=== PATIENT | female | born 1965 | race Caucasian/White ===

== ENCOUNTER 2020-04-16 15:08 | Emergency (ER) | payer SELFPAY ==
--- NOTE | ~2020-04-16 | XR_ITS ---
XR knee RT 2V DATE: 04/16/2020 15:44 INDICATION: Posterior knee pain for 2 days TECHNIQUE: AP and crosstable lateral views of right knee knee COMPARISON: 01/31/2004 right knee FINDINGS: Threaded fixation devices noted in the distal femur and proximal tibia for prior presumed c ruciate ligament repair. No fracture or dislocation is evident. Small suprapatellar bursa joint effusion is suggested. No fracture, dislocation, periosteal reaction or bone destruction, radiopaque intra-articular loose b sun or chondrocalcinosis is evident. IMPRESSION: Postoperative change from presumed prior cruciate ligament repair. Small suprapatellar knee joint effusion Reviewed, dictated and finalized at location A.
--- NOTE | 2020-04-16 15:21 | ED.LOWEXIN ---
HPI - Extremity Injury (Lower) General Chief Complaint: Extremity Injury, Lower Stated Complaint: knee pain Source: patient Mode of arrival: ambulatory Limitations: no limitations History of Present Illness HPI Narrative: Patient presents with a right knee pain her with some mild swelling and redness warmth and tenderness has a history of a else ACL tear with pins in her right knee, there is no known injury although the patient has been outdoors doing yd work and has a few scrapes and abrasions to the anterior and posterior area of her right knee currently there is no fever or chills the knee has good range of motion although limited secondary to pain inflammation. Again no known injury there is no calf pain there is no calf swelling and the patient has a strong brisk pedal pulse on the right. Injury: Right: knee (Pain, swelling and reddness) Place: home Severity: moderate Relieving factors: NSAID Exacerbating factors: weight bearing and movement Related Data Home Medications Medication Instructions Recorded Confirmed aspirin 81 mg PO DAILY 04/16/20 04/16/20 citalopram 10 mg PO DAILY 04/16/20 04/16/20 hydrochlorothiazide 25 mg PO DAILY 04/16/20 04/16/20 metoprolol succinate 25 mg PO DAILY 04/16/20 04/16/20 Allergies Allergy/AdvReac Type Severity Reaction Status Date / Time Penicillins Allergy Unknown Swelling Verified 04/16/20 15:38 GENERAL ANESTHESIA Allergy Severe CARDIAC Uncoded 01/24/04 15:10 ARREST GENERALANESTHET Allergy Severe CARDIAC Uncoded 12/20/08 13:22 ARREST Review of Systems Review of Systems: All systems reviewed & are unremarkable except as noted in HPI and below PMFSH Past Medical History Medical History HTN (hypertension) Exam Const: General: no acute distress and alert Nutritional Appearance: well nourished Orientation/consciousness: patient oriented x3 HENMT: Head: normal to inspection Eyes: Conjunctivae: conjunctivae normal Pupils: Equal, round and reactive pupils present EOM: EOMs intact bilaterally Neck: Neck: normal visual inspection, no lymphadenopathy and no meningeal signs Chest: Chest palpation & inspection: normal inspection of the chest Resp: Effort & Inspection: normal respiratory effort Auscultation: clear to auscultation bilaterally Cardio: Rate: regular rate Rhythm: regular rhythm GI: GI Palp: Yes Soft to palpation Percussion: Yes normal to percussion : General: Yes no CVA tenderness Back/Spine/Pelvis: Back: no CVA tenderness Skin: Other: Anterior r Extrem: Other: anterior right knee with some swelling redness warmth and tenderness to touch. Psych: Mental Status: mental status grossly normal Course Course Emergency Course: Patient after receiving IM Toradol and IM ceftriaxone knee pain is moderately improved. Critical Care Time Critical Care Time Critical Care Time: No Discharge Plan Discharge Clinical Impression: Cellulitis Qualifiers: Site of cellulitis: extremity Site of cellulitis of extremity: lower extremity Laterality: right Qualified Code(s): L03.115 - Cellulitis of right lower limb Patient Disposition: Home, Self-Care Condition: Stable Instructions: Antibiotic Form, Cellulitis (ED) Additional Instructions: take medicine as prescribed, can take ibuprofen 600 mg 3 times a day as needed [id number]. Follow-up with primary care physician if symptoms persist or worsen. Prescriptions: New tramadol [Ultram] 50 mg tablet 50 mg PO Q6H PRN (Reason: pain) Qty: 20 RF: 0 clindamycin HCl 300 mg capsule 300 mg PO Q6H Qty: 40 RF: 0 No Action citalopram 10 mg tablet 10 mg PO DAILY RF: 0 aspirin 81 mg Tablet,Chewable 81 mg PO DAILY RF: 0 hydrochlorothiazide 25 mg tablet 25 mg PO DAILY RF: 0 metoprolol succinate 25 mg tablet extended release 24 hr 25 mg PO DAILY RF: 0 Follow-up/Referrals: Jimbo,GEORGE Boucher [Prima
[2020-04-16 15:30] VITALS: BP 143/75; PULSE 113; RESP 18; TEMP 36.9; O2SAT 96
[2020-04-16] MEDS: KETOROLAC (*BKC) 60 MG/2 ML VIAL IM (15:42)
[2020-04-16 16:13] LABS: Hematocrit 45.1 % (35.0-49.0); Hemoglobin 15.1 g/dL (12.0-15.0); Mean Corpuscular HGB Conc 33.5 g/dL (32.0-36.0); Mean Corpuscular Hemoglobin 30.4 pg (27.0-31.0); Mean Corpuscular Volume 90.7 fL (78.0-102.0); Mean Platelet Volume 9.9 fl (9.2-11.8); Platelet Count Result 281 K/mm3 (150-420); Red Blood Count 4.97 M/mm3 (4.20-5.40); Red Cell Distribution Width 12.8 % (11.6-14.4)
[2020-04-16 16:18] LABS: Alanine Aminotransferase 34 U/L (14-59); Albumin Level 3.9 g/dL (3.4-5.0); Alkaline Phosphatase 64 U/L (46-116); Anion Gap 8 mmol/L (8-16); Aspartate Amino Transferase 21 U/L (15-37); Bilirubin,Total 0.3 mg/dL (0.00-1.00); Blood Urea Nitrogen 27 mg/dL (7-18); Calcium 10.1 mg/dL (8.5-10.1); Carbon Dioxide 28 mmol/L (21-32); Chloride 106 mmol/L (98-108); Estimated CRCL calculation 48 ml/min; Estimated Glomerular Filt Rate 52; Glucose 94 mg/dL (70-99); Osmolality Calculated 299 mOsm/kg (285-295); Potassium 3.5 mmol/L (3.5-5.1); Sodium 142 mmol/L (136-145); Total Protein 7.7 g/dL (6.4-8.2)
[2020-04-16] MEDS: cefTRIAXone 1 GM VIAL IM (16:25)
[2020-04-16 16:47] VITALS: RESP 18
== END 2020-04-16 16:48 | disposition home or self-care (01) ==
PROVIDERS: Emergency Provider Emergency Medicine; PCP Nurse Practitioner
DX: L03.115 Cellulitis of right lower limb (principal)
CPT/HCPCS: 36415; 73560; 80053; 85027; 87040; 87077; 87186; 96372; 99283; 99284; J0696; J1885

== ENCOUNTER 2021-07-08 12:02 | Emergency (ER) | payer OTHER, SELFPAY ==
--- NOTE | ~2021-07-08 | CT_ITS ---
EXAMINATION: CT brain wo con INDICATION: Head injury COMPARISON: 01/26/2018 TECHNIQUE: Standard unenhanced head CT. The dose-length product (DLP) was 529.67 mGy-cm. The mA was a djusted according to patient size. Iterative reconstruction technique was employed. FINDINGS: There is no intracranial hemorrhage, acute infarction, or abnormal mass lesion. The ventric les are normal. There is no abnormal mass effect or midline shift. The mayfield-white matter differentiat ion is normal. The basal cisterns are patent. The orbits are normal. The paranasal sinuses, mastoids and calvarium are normal. IMPRESSION: 1. No acute intracranial abnormality. Reviewed, dictated and finalized at location B.
[2021-07-08 12:22] VITALS: BP 174/97; PULSE 86; RESP 16; TEMP 36; O2SAT 98
[2021-07-08] MEDS: ONDANSETRON HCL ODT 4 MG TABLET PO (12:56)
[2021-07-08] MEDS: KETOROLAC (*BKC) 60 MG/2 ML VIAL IM (12:56)
--- NOTE | 2021-07-08 13:01 | ED.HEATRA ---
HPI - Head Injury General Chief complaint: Head Injury Stated complaint: cracked head 07/07,blurred vision,headache,nausea Source: patient Mode of arrival: ambulatory History of Present Illness HPI Narrative: this 5 year female that hit her head on a cabinet causing a mild non gaping laceration on frontal scalp that occurred on Thursday which was 2 days ago with no loss of consciousness, patient did take some [id number] pain medication with moderate relief. Currently having some nausea with the headache patient did not have any loss of consciousness has no neurological deficits. Complaint: head injury Onset (ago): day(s) Mechanism of Injury: other ( hit her head on a counter) Place: home Loss of Consciousness: no Location of injury: frontal Severity: mild Severity scale (1-10): 5 Quality: dull Related Data Home Medications Medication Instructions Recorded Confirmed aspirin 81 mg PO DAILY 04/16/20 04/16/20 citalopram 10 mg PO DAILY 04/16/20 04/16/20 hydrochlorothiazide 25 mg PO DAILY 04/16/20 04/16/20 metoprolol succinate 25 mg PO DAILY 04/16/20 04/16/20 Allergies Allergy/AdvReac Type Severity Reaction Status Date / Time Penicillins Allergy Unknown Swelling Verified 07/08/21 12:27 GENERAL ANESTHESIA Allergy Severe CARDIAC Uncoded 01/24/04 15:10 ARREST GENERALANESTHET Allergy Severe CARDIAC Uncoded 12/20/08 13:22 ARREST Review of Systems Review of Systems: All systems reviewed & are unremarkable except as noted in HPI and below PMFSH Past Medical History Medical History (Updated 07/08/21 @ 13:06 by Tristan Mars MD) HTN (hypertension) Exam Const: General: no acute distress and alert Orientation/consciousness: patient oriented x3 HENMT: Head: normal to inspection Eyes: Conjunctivae: conjunctivae normal Pupils: Equal, round and reactive pupils present EOM: EOMs intact bilaterally Neck: Neck: normal visual inspection, no lymphadenopathy and no meningeal signs Chest: Chest palpation & inspection: normal inspection of the chest Resp: Effort & Inspection: normal respiratory effort Auscultation: clear to auscultation bilaterally Cardio: Rate: regular rate Rhythm: regular rhythm GI: GI Palp: Yes Soft to palpation : General: Yes no CVA tenderness Urinary Catheter: Urinary Catheter: patent and draining Back/Spine/Pelvis: Back: no CVA tenderness Skin: General skin exam: normal color Rashes: no rashes Neuro: General: patient oriented x3, moves all extremities, no meningeal signs and no focal motor deficits Cranial nerves: Yes CN's II-XII intact bilaterally and Yes Nystagmus not present Psych: Mental Status: mental status grossly normal Affect: normal affect Course Course Emergency Course: Patient received IM Toradol CT scan was reviewed with patient and will send pain medication to her pharmacy and advised follow-up primary care physician patient received ODT Zofran which helped her nausea and pain was has improved with IM Toradol. Vital Signs Vital signs: Vital Signs Temperature 36.0 C L 07/08/21 12:22 Pulse Rate 86 07/08/21 12:22 Respiratory Rate 16 07/08/21 12:22 Blood Pressure 174/97 H 07/08/21 12:22 Pulse Oximetry 98 07/08/21 12:22 Temperature 36.0 C L 07/08/21 12:22 Pulse Rate 86 07/08/21 12:22 Respiratory Rate 16 07/08/21 12:22 Blood Pressure 174/97 H 07/08/21 12:22 Pulse Oximetry 98 07/08/21 12:22 Critical Care Time Critical Care Time Critical Care Time: No Discharge Plan Discharge Clinical Impression: Head injury Qualifiers: Encounter type: initial encounter Qualified Code(s): S09.90XA - Unspecified injury of head, initial encounter Patient Disposition: Home, Self-Care Condition: Stable Instructions: Antibiotic Form, Head Injury (ED) Additional Instructions: take medicine as prescribed and follow-up with primary care physician within 1 week if symptoms persist or worsen. Prescriptions: New
== END 2021-07-08 13:16 | disposition home or self-care (01) ==
PROVIDERS: Emergency Provider Emergency Medicine; PCP Nurse Practitioner
DX: S09.90XA Unspecified injury of head, initial encounter (principal); W22.8XXA Striking against or struck by other objects, initial encounter
CPT/HCPCS: 70450; 96372; 99283; 99284; A9270; J1885

== ENCOUNTER 2022-08-11 11:22 | Outpatient (CLI) | payer BC, SELFPAY ==
[2022-08-14 10:50] LABS: Alpha-1-Antitrypsin, QN 144 mg/dL (83-199)
== END 2022-08-11 11:23 | disposition home or self-care (01) ==
LOC: CHSLAB 11:24
PROVIDERS: PCP Nurse Practitioner; Visit Provider Internal Medicine Pulmonary Disease
DX: J43.2 Centrilobular emphysema (principal)
CPT/HCPCS: 36415; 82103

== ENCOUNTER 2023-02-20 07:45 | Outpatient (CLI) | payer OTHER, SELFPAY ==
--- NOTE | 2023-02-20 07:57 | ECG_ITS ---
Measurements Intervals [place] Rate: 78 P: 47 [place]: 180 QRS: 24 QRSD: 106 T: -11 QT: 382 QTc: 436 Interpretive Statements SINUS RHYTHM NONSPECIFIC T-WAVE ABNORMALITY BORDERLINE ECG NO PREVIOUS ECG AVAILABLE FOR COMPARISON Electronically Signed On 02-20-2023 13:29:20 CDT by Tristan Zeng M.D.
[2023-02-20 08:48] LABS: Anion Gap 5 mmol/L (8-16); Blood Urea Nitrogen 20 mg/dL (7-17); Calcium 8.9 mg/dL (8.4-10.2); Carbon Dioxide 31 mmol/L (22-30); Chloride 103 mmol/L (98-107); Estimated Glomerular Filt Rate > 60; Glucose 120 mg/dL (65-110); Potassium 3.3 mmol/L (3.4-5.0); Sodium 139 mmol/L (137-145)
== END 2023-02-20 07:46 | disposition home or self-care (01) ==
PROVIDERS: Anesthesiology; PCP Nurse Practitioner; Visit Provider Otolaryngology
DX: I10 Essential (primary) hypertension (principal); Z01.818 Encounter for other preprocedural examination; R94.31 Abnormal electrocardiogram [ECG] [EKG]
CPT/HCPCS: 36415; 80048; 93005

== ENCOUNTER 2023-02-24 00:30 | Day surgery (SDC) | payer OTHER, SELFPAY ==
--- NOTE | 2023-02-17 14:36 | SUR.PREOP ---
Report to the Outpatient Waiting Room, entrance under the green pavilion located off [facility], at time 0915 on date 02/24/23. Planned Procedure Time: 1115. Time changes happen often and if your time is changed the preop area will call you the afternoon before. - You and your visitor will be asked to self-screen and do not enter if you have any COVID symptoms. - A mask is optional within the hospital at this time. Patients may have clear liquids (water, carbonated beverages, clear teas, apple juice) until 3 hours prior to surgery with a maximum of 20 ounces. - No food from midnight until time of surgery - Infants may have breast milk until 4 hours before surgery, infant formula 6 hours prior to surgery. - Children will be allowed to drink immediately following surgery. If applicable, please bring a bottle or sippy cup to assist with drinking. Juice, water, soda, and popsicles are readily available. For infants on formula, please bring formula the day of surgery. Pacifiers are allowed. Take the following medications with a SIP of water the morning of surgery: CITALOPRAM, METOPROLOL DO NOT STOP ANY OF YOUR OTHER PRESCRIPTION MEDICATIONS PRIOR TO SURGERY ?EXCEPT THE FOLLOWING Medications to discontinue per physician ASPIRIN- STOPPED 02/16/[address] SANCHEZ, VITAMINS & SUPPLEMENTS STOP 02/21/23 Please no make-up, nail burkinan, hairspray, perfume, deodorant, or body powder the day of surgery. No jewelry (including any body piercings) or valuables the day of surgery, leave them at home. Please take a shower or bath the night before, or the morning of, surgery with an antibacterial soap. Wear comfortable, loose fitting clothing. Children are encouraged to wear pajamas. - Jewelry must be removed prior to entering the operating room. Rings and piercings that are not removed may be cut off. - The hospital will not accept responsibility for valuables. - Please leave all valuables, including medications, at home the day of surgery. If you are going home after surgery, a licensed otr truck driver must drive you home. - NO public transportation without another adult if you receive anesthesia. - We recommend that an adult stay with you for 24 hours following discharge. - We also recommend that you do not drive, make important decision, drink alcoholic beverages, or take any drugs that were not prescribed by your health care provider for at least 24 hours after your discharge time. For Pediatric surgeries, we recommend two adults accompany the child home. Follow any additional instructions given to you from your surgeon. If you or anyone in your household have experienced Covid symptoms in the past week, please notify your surgeon or the nurse liaison at the phone number below for possible testing. Telephone instructions given to ANGELICA ROLLE and asked if any additional questions and then verbalized understanding. Patient advised to call surgeon office or pre surgery nurse liaison [phone] if any additional questions.
[2023-02-17 14:46] VITALS: BMI 29.5
--- NOTE | 2023-02-22 10:57 | PM.IMHP ---
H&P: HPI History of Present Illness Date/Time: 02/22/23 10:57 Chief Complaint: septal deviation turbinate hypertrophy nasal obstruction nasal congestion chronic sinusitis Narrative: planned procedure Review of Systems Review of Systems: All systems reviewed & are unremarkable except as noted in HPI and below PMFSH Past Medical History Medical History (Updated 12/25/22 @ 14:04 by Praveen Mast MD) HTN (hypertension) Surgical History Surgical History History of cholecystectomy Knee joint replacement status Family History Family History Father Heart disease Mother Asthma Cancer Hypertension Heart disease Grandparent Cancer Hypertension Heart disease Social History Social History (Updated 12/25/22 @ 13:31 by Mayuri Wang CMA) Smoking packs per day: 0.75 Smoking cigarettes per day: 15.0 Years smoked: 40 Smoking pack-years: 30.00 Smoking status: Former smoker Tobacco type: cigarettes Smoking end date: 01/05/23 Lack of Transportation: No Lack of Food: Never True Current Housing: I Have Housing Concerned About Future Housing: No Difficulty Paying Gas/Electric Bills: YES Difficulty Paying for Meds: No Currently Unemployed: No Education: High School Diploma/GED Living arrangements: with family Spiritual care concerns: No Meds Home Medications and Allergies Home Medications Medication Instructions Recorded Confirmed Type aspirin 81 mg chewable tablet 81 mg PO DAILY 04/16/20 02/17/23 History citalopram 10 mg tablet 10 mg PO DAILY 04/16/20 02/17/23 History hydrochlorothiazide 25 mg tablet 25 mg PO DAILY 04/16/20 02/17/23 History metoprolol succinate 25 mg 50 mg PO DAILY 04/16/20 02/17/23 History tablet,extended release 24 hr ascorbate calcium (vitamin C) 500 500 mg PO DAILY 12/17/22 02/17/23 History mg tablet cholecalciferol (vitamin D3) 10 10 mcg PO DAILY 12/17/22 02/17/23 History mcg (400 unit) capsule igkqrrws-xzv-powqm acid 0.4 1 tablet PO DAILY 12/17/22 02/17/23 History mg-lycopene 300 mcg-lutein 250 mcg tablet (Centrum Silver) potassium chloride 10 mEq 10 meq PO DAILY 12/17/22 02/17/23 History capsule,extended release albuterol sulfate 90 mcg/actuation 1 puff inhalation Q4H PRN 12/25/22 02/17/23 History aerosol inhaler (ProAir HFA) SHORTNESS OF BREATH fluticasone propionate 50 2 spray intranasal BID #16 mL 12/25/22 02/17/23 Rx mcg/actuation nasal spray,suspension (Flonase Allergy Relief) doxycycline hyclate 100 mg capsule 100 mg PO DAILY #7 caps 02/20/23 Rx Allergies Allergy/AdvReac Type Severity Reaction Status Date / Time bee venom protein (honey bee) Allergy Severe Swelling Verified 02/17/23 14:18 of Lip/Tongue/Throat iodine Allergy Severe Vomiting Verified 02/17/23 14:17 nut - unspecified Allergy Severe Itching Verified 02/17/23 14:19 Penicillins Allergy Severe Swelling Verified 02/17/23 14:18 of Lip/Tongue/Throat codeine Allergy Severe Headache Uncoded 02/17/23 14:18 Exam Narrative: Septal deviation turbinate hypertrophy Assessment and Plan Assessment and plan (1) Chronic sinusitis: Code(s): J32.9 - Chronic sinusitis, unspecified Status: Acute Assessment and Plan: ?for image guided endoscopic right-sided maxillary antrostomy with tissue removal left ashley bullosa resection endoscopic assisted septoplasty bilateral inferior turbinate submucosal reduction with outfracture. Risks were discussed including septal perforation regrowth of turbinates failure to resolve symptoms need for further procedures total blindness change in vision CSF leak brain brain damage. Patient voiced understanding of these risks and agreed. Also discussed damage to any structure above the clavicle by myself need for routine follow-up need for prolong
--- NOTE | 2023-02-23 13:07 | WPDANESEPPF ---
Anes - Initial Pre Proc Eval Procedure: Operation Date: 02/24/23 12:00 Proposed Procedures p Image Guided Right Maxillary Antrostomy with Tissue Removal, Left Resection Jennifer Bullosa - Praveen Mast MD s Septoplasty - Praveen Mast MD Date/Time: 02/23/23 13:07 Surgeon: Praveen Mast MD Pre Op Diagnosis: chronic sinusitis Patient Data Age: 57 Gender: F Height: 1.68 m Weight: 83.1 kg Allergies Allergy/AdvReac Type Severity Reaction Status Date / Time bee venom protein (honey bee) Allergy Severe Swelling Verified 02/24/23 10:54 of Lip/Tongue/Throat iodine Allergy Severe Vomiting Verified 02/24/23 10:54 nut - unspecified Allergy Severe Itching Verified 02/24/23 10:54 Penicillins Allergy Severe Swelling Verified 02/24/23 10:54 of Lip/Tongue/Throat codeine Allergy Severe Headache Uncoded 02/24/23 10:54 Home Medications Medication Instructions Recorded Confirmed Type aspirin 81 mg chewable tablet 81 mg PO DAILY 04/16/20 02/17/23 History citalopram 10 mg tablet 10 mg PO DAILY 04/16/20 02/24/23 History hydrochlorothiazide 25 mg tablet 25 mg PO DAILY 04/16/20 02/17/23 History metoprolol succinate 25 mg 50 mg PO DAILY 04/16/20 02/24/23 History tablet,extended release 24 hr ascorbate calcium (vitamin C) 500 500 mg PO DAILY 12/17/22 02/17/23 History mg tablet cholecalciferol (vitamin D3) 10 10 mcg PO DAILY 12/17/22 02/17/23 History mcg (400 unit) capsule hwdbqbrt-lfc-mkjkf acid 0.4 1 tablet PO DAILY 12/17/22 02/17/23 History mg-lycopene 300 mcg-lutein 250 mcg tablet (Centrum Silver) potassium chloride 10 mEq 10 meq PO DAILY 12/17/22 02/17/23 History capsule,extended release albuterol sulfate 90 mcg/actuation 1 puff inhalation Q4H PRN 12/25/22 02/17/23 History aerosol inhaler (ProAir HFA) SHORTNESS OF BREATH fluticasone propionate 50 2 spray intranasal BID #16 mL 12/25/22 02/17/23 Rx mcg/actuation nasal spray,suspension (Flonase Allergy Relief) doxycycline hyclate 100 mg capsule 100 mg PO DAILY #7 caps 02/20/23 Rx Patient hx anesthesia problems: none Family hx anesthesia problems: none Results Review: All pre-operative results and documents have been reviewed as part of the pre-operative evaluation. [facility] Past Medical History Medical History (Updated 02/23/23 @ 13:08 by Tone Fernandes DO) Asthma COPD (chronic obstructive pulmonary disease) HTN (hypertension) Hyperlipidemia ERIC (obstructive sleep apnea) CPAP Surgical History Surgical History (Updated 02/23/23 @ 13:08 by Tone Fernandes DO) History of x2 History of cholecystectomy Knee joint replacement status Family History Family History Father Heart disease Mother Asthma Cancer Hypertension Heart disease Grandparent Cancer Hypertension Heart disease Social History Social History (Updated 12/25/22 @ 13:31 by Mayuri Wang CMA) Smoking packs per day: 0.75 Smoking cigarettes per day: 15.0 Years smoked: 40 Smoking pack-years: 30.00 Smoking status: Former smoker Tobacco type: cigarettes Smoking end date: 01/05/23 Lack of Transportation: No Lack of Food: Never True Current Housing: I Have Housing Concerned About Future Housing: No Difficulty Paying Gas/Electric Bills: YES Difficulty Paying for Meds: No Currently Unemployed: No Education: High School Diploma/GED Living arrangements: with family Spiritual care concerns: No Anes - Eval Final PreProcedure Day of Procedure 02/23/23 13:07 Patient weight: overweight Heart: regular rate and rhythm Lungs: clear to auscultation Airway: Mallampati scale class II Neurological: alert and oriented Last oral intake: >/= 8 hours ASA classification: III Emergent: no Anesthetic plan: proceed Anesthesia type and monitoring: general ETT and standard monitoring Results Review: All pre-operative results
[2023-02-24] VITALS (16 sets, daily range): BP systolic 107–166; BP diastolic 57–89; PULSE 71–90; RESP 10–16; TEMP 36.1–36.6; O2SAT 92–98
--- NOTE | 2023-02-24 07:21 | WPDHPUPDATE1 ---
History and Physical Update Update Date/Time: 02/24/23 07:21 History and Physical has been reviewed, including an updated exam of the patient. There are NO changes in the patient's condition. Risks, benefits, and alternatives have been discussed and questions answered. Patient agrees to proceed with procedure.
[2023-02-24] MEDS: ACETAMINOPHEN 500 MG TABLET 1000 MG PO (10:45)
[2023-02-24] MEDS: LACTATED RINGERS 1,000 ML 30 ML IV CONT ×2 (10:54→15:46)
[2023-02-24] MEDS: ceFAZolin 2 GM/D5W 50 ML 2 GM/50 ML BAG IVPB (13:39)
[2023-02-24] MEDS: LIDO 1%/EPINEPHRINE 1:100,000 50 ML VIAL 12 ML INFILTRATE (14:19)
[2023-02-24] MEDS: OXYMETAZOLINE HCL 0.05% NAS 15 ML BTL (*BKC) 1 SPRAY NASAL (14:20)
[2023-02-24] MEDS: MUPIROCIN 2% OINT 22 GM TUBE 1 APPLIC EACH NARE (15:08)
--- NOTE | 2023-02-24 16:04 | W.PM.PROC2 ---
Procedure Note - Detailed Date of Procedure 02/24/23 Pre-op Diagnosis chronic sinusitis Nasal obstruction nasal congestion ashley bullosa Post-op Diagnosis Same Procedure Performed image guided right-sided maxillary antrostomy without tissue removal endoscopic assisted septoplasty in for turbinate reduction with outfracture left-sided resection of ashley bullosa. Surgeon Praveen Mast MD Anesthesia General Indications See above Findings large ashley severely deviated right caudal septum large turbinates right-sided edematous tissue within the max Description of Procedure patient identified consent verified in preop. Patient brought operating room. Time-out performed. General anesthesia induced endotracheal tube secured airway. Patient prepped draped position procedure confirmed 2nd time-out performed. Afrin-soaked pledgets placed in the nasal passages for 5 minutes then removed. Image guidance initiated confirmed. Right maxillary antrostomy performed with image guidance middle turbinate medialized backbiter straight through cut micro debrider utilized to widely open the maxillary sinus edematous tissue present. Gelfoam placed middle meatus left-sided ashley bullosa resected with sickle knife micro debrider Gelfoam placed in that area as well. Turbinates reduced in a submucosal plane after the injection of 1 cc of lidocaine into each head. With microdebrider with turbinate blade then outfractured [place]. Holger incision made left-sided very anterior able to see the entire caudal septum when scraped forward. The nasal septum was obviously injected with 10 cc of lidocaine with 1 100,000 parts epinephrine. 1%. Deviated septum removed there were perforations very closely a not abutting. Straight cartilage was placed in between the near perforations again they were not abutting. Nasal septal flap for elevated with 7 German suction again the cartilage was placed near any perforations deviated septum removed combination 15 blade osteotome José Miguel Lavelle forceps Evaristo forceps. After the procedure the Ortiz splints were placed bilaterally sutured anteriorly after left was trimmed sutured anteriorly using a through mattress nylon suture. Blood loss 15 cc. I performed all dictated portions procedure. Care the patient given back to Anesthesiology. No complications. Patient taken to PACU. Estimated Blood Loss 15 Drains No Packing Yes ( Gelfoam) Pathology None sent Complications No immediate complications Condition Stable Disposition PACU [facility] Billing Surgery - Charge Forward: Surgery Billing
[2023-02-24] MEDS: ONDANSETRON HCL ODT 4 MG TABLET PO (18:49)
[2023-02-24] MEDS: oxyCODONE HCL (*CRX) 5 MG TAB IR PO (19:20)
--- NOTE | 2023-02-24 19:21 | SUR.PHASEII ---
1920: Dressed with IV out x 1 hour. Had nausea without emesis. Nausea has subsided. pain to nares at 4/10. Oxycodone administered. VSS.
== END 2023-02-24 19:22 | disposition home or self-care (01) ==
PROVIDERS: PCP Nurse Practitioner; Visit Provider Otolaryngology
PROC: (CPT 31256; principal; 2023-02-24 12:00)
PROC: (CPT 30520; 2023-02-24 12:00)
DX: J32.9 Chronic sinusitis, unspecified (principal); J34.2 Deviated nasal septum; J34.3 Hypertrophy of nasal turbinates; R09.81 Nasal congestion; J34.89 Other specified disorders of nose and nasal sinuses; J44.9 Chronic obstructive pulmonary disease, unspecified; I10 Essential (primary) hypertension; E78.5 Hyperlipidemia, unspecified; G47.33 Obstructive sleep apnea (adult) (pediatric); Z87.891 Personal history of nicotine dependence; Z79.82 Long term (current) use of aspirin; Z79.51 Long term (current) use of inhaled steroids
CPT/HCPCS: 31256; 31240; 61782; 30520; 30140; A9270; J0330; J0690; J1100; J1170; J2250; J2405; J2704; J3010; J7120

== ENCOUNTER 2024-03-24 08:18 | Outpatient (CLI) | payer OTHER, SELFPAY ==
[2024-03-24 09:34] LABS: Thyroid Stimulating Hormone 3.58 uIU/mL (0.36-3.74)
== END 2024-03-24 08:19 | disposition home or self-care (01) ==
LOC: CHSLAB 08:21
PROVIDERS: PCP Nurse Practitioner; Visit Provider Nurse Practitioner
DX: E03.9 Hypothyroidism, unspecified (principal)
CPT/HCPCS: 36415; 84443

== ENCOUNTER 2024-04-05 09:42 | Emergency (ER) | payer OTHER, SELFPAY ==
--- NOTE | ~2024-04-05 | CT_ITS ---
Procedure: CT hand RT wo con Ordering provider: Edd Borrego MD History: . pain/cyst ON TIP OF 1ST FINGER,SWELLING/PAIN . Comparison: None. Technique: Thin slice axial CT of the No IV contrast was given. Sagittal and coronal reformatted imag es were also obtained and reviewed. . Radiation reduction technique utilized. The dose-length product was 609.69 mGy-cm. Findings: BONES: Cystic area seen in the lunate bone. JOINT SPACES: Osteoarthritic changes seen in the distal interphalangeal joint of the second, third, a nd fifth finger SOFT TISSUES: Cystic area seen in the soft tissues of the thumb which measures 1 x 0.9 cm. IMPRESSION: Cystic area seen in the soft tissues of the thumb in the area of the distal phalanx which measures 1 x 0.9 cm. The differential includes abscess versus epidermoid cyst versus a hematoma. Ganglion cyst is also pos sible. Further evaluation advised. Osteoarthritic changes in multiple joints. No acute osseous abnormality. Reviewed, dictated and finalized at location A. IMPRESSION: Cystic area seen in the soft tissues of the thumb in the area of the distal pha lanx which measures 1 x 0.9 cm. The differential includes abscess versus epidermoid cyst versus a hematoma. Johanny glion cyst is also possible. Further evaluation advised. Osteoarthritic changes in multiple joints. No acute osseous abnormality.
[2024-04-05 09:45] VITALS: BP 175/97; PULSE 82; RESP 20; TEMP 36.6; O2SAT 96
--- NOTE | 2024-04-05 09:55 | ED.EXTPRO ---
HPI - Extremity Problem General Chief complaint: Extremity Problem,Nontraumatic Stated complaint: rt thumb pain Time Seen by Provider: 04/05/24 09:43 Source: patient Mode of arrival: ambulatory Limitations: no limitations History of Present Illness HPI Narrative: Patient is a 58-year-old female with a right thumb lesion causing pain and pressure for the past 6 months. It is getting worse so she came to the emergency room. She has seen a hand specialist and they said it is probably a cyst. They did not do anything at that time. She has another hand specialist appointment in the next month. MD Complaint: extremity pain Onset (ago): month(s) (6) Pain Consistency: constant Location: right and other ( Thumb) Severity scale (1-10): 6 Quality: burning, stabbing and sharp Radiation: none Relieving factors: nothing Exacerbating factors: palpation Associated symptoms: denies other symptoms Context: other ( worsening and larger right thumb cyst type lesion causing pain) Related Data Home Medications Medication Instructions Recorded Confirmed aspirin 81 mg chewable tablet 81 mg PO DAILY 04/16/20 04/05/24 citalopram 10 mg tablet 10 mg PO DAILY 04/16/20 04/05/24 hydrochlorothiazide 25 mg tablet 25 mg PO DAILY 04/16/20 04/05/24 metoprolol succinate 25 mg 50 mg PO DAILY 04/16/20 04/05/24 tablet,extended release 24 hr ascorbate calcium (vitamin C) 500 500 mg PO DAILY 12/17/22 04/05/24 mg tablet cholecalciferol (vitamin D3) 10 10 mcg PO DAILY 12/17/22 04/05/24 mcg (400 unit) capsule rqjceici-bvc-hgryo acid 0.4 1 tablet PO DAILY 12/17/22 04/05/24 mg-lycopene 300 mcg-lutein 250 mcg tablet (Centrum Silver) potassium chloride 10 mEq 10 meq PO DAILY 12/17/22 04/05/24 capsule,extended release albuterol sulfate 90 mcg/actuation 1 puff inhalation Q4H PRN 12/25/22 04/05/24 aerosol inhaler (ProAir HFA) SHORTNESS OF BREATH albuterol sulfate 2.5 mg/3 mL 2.5 mg inhalation Q6H 03/02/23 04/05/24 (0.083 %) solution for nebulization budesonide-formoterol HFA 160 2 puff inhalation BID 03/02/23 04/05/24 mcg-4.5 mcg/actuation aerosol inhaler (Symbicort) Allergies Allergy/AdvReac Type Severity Reaction Status Date / Time bee venom protein (honey bee) Allergy Severe Swelling Verified 09/08/23 08:44 of Lip/Tongue/Throat iodine Allergy Severe Vomiting Verified 09/08/23 08:44 nut - unspecified Allergy Severe Itching Verified 09/08/23 08:44 Penicillins Allergy Severe Swelling Verified 09/08/23 08:44 of Lip/Tongue/Throat codeine Allergy Severe Headache Uncoded 09/08/23 08:44 Review of Systems Review of Systems: All systems reviewed & are unremarkable except as noted in HPI and below Constitutional: Constitutional: Reports no additional constitutional complaints Eyes: Eyes: Reports no additional eye complaints ENT: Reports system reviewed and no additional complaints, except as documented Cardiovascular: Cardiovascular: Reports no additional cardiovascular complaints Respiratory: Respiratory: Reports no additional respiratory complaints Gastrointestinal: Gastrointestinal: Reports no additional gastrointestinal complaints Genitourinary: Genitourinary: Reports no additional female genitourinary complaints Musculoskeletal: Musculoskeletal: Reports no additional musculoskeletal complaints Integumentary/Breasts: Skin/Breast: Reports system reviewed and no additional complaints, except as docu Neurologic: Reports system reviewed and no additional complaints, except as documented Psychiatric: Psychiatric: Reports no additional psychiatric complaints Endocrine: Endocrine: Reports no additional endocrine complaints Hematologic/Lymphatic: Hematologic/Lymphatic: Reports no additional hematologic/lymphatic complaints Allergic/Immunologic: Allergic/Immunologic: Reports no additional allergic/immunologic complaints PMFSH Past Medical History Medical History (Reviewed 04/05/24 @ 09:57 by Edd Borrego,
--- NOTE | 2024-04-05 10:14 | PC.NURSE ---
PT AMBULATED TO XRAY DEPT WITH STAFF FOR CT.
--- NOTE | 2024-04-05 10:27 | PC.NURSE ---
1020 PT RETURN TO ROOM
[2024-04-05] MEDS: LIDOCAINE HCL 1% LOCAL INJ 10 ML VIAL 5 ML INFILTRATE (10:58)
--- NOTE | 2024-04-05 11:13 | PC.NURSE ---
Assisted Dr. Ceja as he lanced cyst on pt finger. Cleansed finger before with iodine and bandaged it afterwards and cleaned up room.
[2024-04-05 11:17] VITALS: BP 174/100; PULSE 65; RESP 20; O2SAT 97
== END 2024-04-05 11:17 | disposition home or self-care (01) ==
PROVIDERS: Emergency Provider Emergency Medicine; PCP Nurse Practitioner
DX: L02.511 Cutaneous abscess of right hand (principal); I10 Essential (primary) hypertension; E78.5 Hyperlipidemia, unspecified; J44.9 Chronic obstructive pulmonary disease, unspecified; Z79.82 Long term (current) use of aspirin; Z79.899 Other long term (current) drug therapy
CPT/HCPCS: 26010; 73200; 99284

== ENCOUNTER 2024-06-17 14:44 | Emergency (ER) | payer OTHER, SELFPAY ==
--- NOTE | ~2024-06-17 | XR_ITS ---
XR chest 2V Ordering provider: Tomi Escobar MD History: 58 years Female with . cough/fever/sob x4 days . Comparison: January 26, 2013 FINDINGS: MEDIASTINUM: The cardiac silhouette is not enlarged. LUNGS: No infiltrates, effusions or pneumothorax. Slightly prominent bronchovascular markings in the lower lobes. Early pneumonitis is not excluded. OTHER: No free air under the diaphragm. Degenerative changes of the spine. IMPRESSION: Slightly prominent bronchovascular markings in the lower lobes. Early pneumonitis is not excluded. Reviewed, dictated and finalized at location A. IMPRESSION: Slightly prominent bronchovascular markings in the lower lobes. Early pneumonit is is not excluded.
[2024-06-17 14:47] VITALS: BP 136/98; PULSE 108; RESP 18; TEMP 37.2; O2SAT 95
--- NOTE | 2024-06-17 14:52 | ED.GENADULT ---
HPI - General Adult General Chief complaint: Upper Respiratory Infection Stated complaint: FEVER Time Seen by Provider: 06/17/24 14:52 Source: patient Mode of arrival: ambulatory Limitations: no limitations History of Present Illness HPI narrative: cough for 3 days productive of white sputum fever off and on with nausea decreased p.o. intake. Denies any rash shortness of breath chest pain shortness of breath. She has emphysema is still smoking she says she can not smoke as much she took 3 of her breathing treatments today denies any other complaints. Related Data Home Medications Medication Instructions Recorded Confirmed aspirin 81 mg chewable tablet 81 mg PO DAILY 04/16/20 06/17/24 citalopram 10 mg tablet 10 mg PO DAILY 04/16/20 06/17/24 hydrochlorothiazide 25 mg tablet 25 mg PO DAILY 04/16/20 06/17/24 metoprolol succinate 25 mg 50 mg PO DAILY 04/16/20 06/17/24 tablet,extended release 24 hr ascorbate calcium (vitamin C) 500 500 mg PO DAILY 12/17/22 06/17/24 mg tablet cholecalciferol (vitamin D3) 10 10 mcg PO DAILY 12/17/22 06/17/24 mcg (400 unit) capsule qogzrlkw-iqd-ymipo acid 0.4 1 tablet PO DAILY 12/17/22 06/17/24 mg-lycopene 300 mcg-lutein 250 mcg tablet (Centrum Silver) potassium chloride 10 mEq 10 meq PO DAILY 12/17/22 06/17/24 capsule,extended release albuterol sulfate 90 mcg/actuation 1 puff inhalation Q4H PRN 12/25/22 06/17/24 aerosol inhaler (ProAir HFA) SHORTNESS OF BREATH albuterol sulfate 2.5 mg/3 mL 2.5 mg inhalation Q6H 03/02/23 06/17/24 (0.083 %) solution for nebulization budesonide-formoterol HFA 160 2 puff inhalation BID 03/02/23 06/17/24 mcg-4.5 mcg/actuation aerosol inhaler (Symbicort) atorvastatin 80 mg tablet 80 mg DAILY 06/17/24 06/17/24 levothyroxine 25 mcg tablet 25 mcg DAILY 06/17/24 06/17/24 meloxicam 15 mg tablet 15 mg DAILY 06/17/24 06/17/24 Allergies Allergy/AdvReac Type Severity Reaction Status Date / Time bee venom protein (honey bee) Allergy Severe Swelling Verified 06/17/24 14:50 of Lip/Tongue/Throat iodine Allergy Severe Vomiting Verified 06/17/24 14:50 nut - unspecified Allergy Severe Itching Verified 06/17/24 14:50 Penicillins Allergy Severe Swelling Verified 06/17/24 14:50 of Lip/Tongue/Throat codeine Allergy Severe Headache Uncoded 06/17/24 14:50 Review of Systems Review of Systems: All systems reviewed & are unremarkable except as noted in HPI and below PMFSH Past Medical History Medical History Asthma COPD (chronic obstructive pulmonary disease) HTN (hypertension) Hyperlipidemia ERIC (obstructive sleep apnea) CPAP Surgical History Surgical History History of x2 History of cholecystectomy Knee joint replacement status Family History Family History Father Heart disease Mother Asthma Cancer Hypertension Heart disease Grandparent Cancer Hypertension Heart disease Social History Social History Smoking packs per day: 0.75 Smoking cigarettes per day: 15.0 Years smoked: 40 Smoking pack-years: 30.00 Smoking status: Former smoker Tobacco type: cigarettes Smoking end date: 01/05/23 Lack of Transportation: No Lack of Food: Never True Current Housing: I Have Housing Concerned About Future Housing: No Difficulty Paying Gas/Electric Bills: No Difficulty Paying for Meds: No Currently Unemployed: No Education: Trade/Vocational Certificate Difficulty w/ Childcare or Family Care: No Living arrangements: with family Spiritual care concerns: No Exam Narrative: White female patient with Mild distress holding her blanket.? Head normocephalic, atraumatic.? Eyes conjunctiva pink sclera nonicteric.? Extraocular movements are intact.? Ears e
[2024-06-17 15:10] VITALS: PULSE 92; RESP 20; O2SAT 99
[2024-06-17] MEDS: IPRATROPIUM 0.5 MG/ALBUTEROL SULFATE 2.5 MG AMPUL.NEB 3 ML INHALATION (15:10)
[2024-06-17 15:18] VITALS: PULSE 94; RESP 20; O2SAT 99
[2024-06-17 15:43] LABS: SARS-CoV-2 RNA PCR Negative (Negative)
[2024-06-17 15:44] LABS: Influenza A QL RT-PCR Negative (Negative); Influenza B QL RT-PCR Negative (Negative); RSV RNA, RT-PCR Negative (Negative)
== END 2024-06-17 16:48 | disposition home or self-care (01) ==
PROVIDERS: Emergency Provider Emergency Medicine; PCP Nurse Practitioner
DX: J44.1 Chronic obstructive pulmonary disease with (acute) exacerbation (principal); J18.9 Pneumonia, unspecified organism; J43.9 Emphysema, unspecified; I10 Essential (primary) hypertension; E78.5 Hyperlipidemia, unspecified; Z20.822 Contact with and (suspected) exposure to COVID-19; Z79.82 Long term (current) use of aspirin; Z79.899 Other long term (current) drug therapy; Z87.891 Personal history of nicotine dependence
CPT/HCPCS: 71046; 87637; 94640; 99283